=== PATIENT | male | born 1995 | race Caucasian/White ===

== ENCOUNTER 2016-06-03 14:12 | Emergency (ER) | payer OTHER ==
[~2016-06-03] VITALS: Ht 182.9 cm; Wt 81.0 kg
[~2016-06-03 14:12] MED LIST: HYDR-3533 PO
[2016-06-03 14:24] VITALS: BP 129/73; PULSE 115; RESP 16; TEMP 97.6; O2SAT 96
--- NOTE | 2016-06-03 15:59 | PD ---
HPI Chief Complaint: Wound/Suture/Staple Re-Check Time Seen by Provider: 15:55 Travel History International Travel<30 days: No Contact w/Intl Traveler<30days: No Traveled to known affect area: No History of Present Illness HPI 20-year-old male presents to the emergency room for suture removal. Patient had 6 sutures placed in 2 separate wounds on his right forearm 11 days ago. States she's been keeping the areas clean and dry. Denies evidence of infection such as drainage, redness, or streaking. PFSH Past Medical History Medical History: Denies Significant Hx Diminished Hearing: No Tetanus Vaccination: < 5 Years Influenza Vaccination: No Past Surgical History Surgical History: No Previous Surgery Social History Alcohol Use: Yes (3-4 BEER A WEEK ) Tobacco Use: No Substance Use: Yes (MARIJUANA) Allergies-Medications (Allergen,Severity, Reaction): Coded Allergies: No Known Allergies (Unverified , 06/03/16) Reported Meds & Prescriptions Reported Meds & Active Scripts Active Lortab (Hydrocodone-Acetaminophen) 5-325 Mg Tab 1 Tab PO Q4H PRN Review of Systems Except as stated in HPI: all other systems reviewed are Neg Physical Exam Narrative GENERAL: Well-nourished, well-developed male in no acute distress. Afebrile. Ambulatory. SKIN: Warm and dry. There are 2 very well approximated, noninfected appearing lacerations to the right lateral forearm. HEAD: Normocephalic. Data Data Last Documented VS Vital Signs Date Time Temp Pulse Resp B/P Pulse Ox O2 Delivery O2 Flow Rate FiO2 06/03/16 14:24 97.6 115 16 129/73 96 MDM Medical Decision Making Medical Screen Exam Complete: Yes Emergency Medical Condition: Yes Medical Record Reviewed: Yes Differential Diagnosis Suture removal versus wound infection versus laceration Narrative Course 20-year-old male presents to the emergency room for evaluation of suture removal. Patient had 6 sutures placed in 2 separate 2 cm wounds to the right lateral forearm 11 days ago; 3 in each wound. Sutures are intact. No evidence of infection. Nontender. Well approximated. Sutures removed without difficulty. Patient discharged with wound care instructions and told to follow up as needed or return for worsening symptoms. He understands and agrees to plan. Diagnosis Primary Impression: Encounter for removal of sutures Referrals: Primary Care Physician Patient Instructions: General Instructions, Stitches Removal (ED) Additional Instructions: Keep wound clean and dry. Apply triple antibiotic ointment twice daily until scab falls off. Follow-up as needed. Return for worsening symptoms such as signs of infection. Disposition: 01 DISCHARGE HOME Condition: Stable Stefanie oSw Jun 03, 2016 15:59
== END 2016-06-03 16:19 | disposition home or self-care (01) ==
LOC: PHED 14:12 → PHEFT 16:19
DX: Z48.02 Encounter for removal of sutures (principal)
CPT/HCPCS: 99281; 99282